=== PATIENT | male | born 1945 | race Caucasian/White ===

== ENCOUNTER 2018-01-01 09:40 | Day surgery (SDC) | payer OTHER ==
[~2018-01-01 09:40] MED LIST: GABAPENTIN400 MG PO; HYZAAR 100-251 UDTAB PO; JANUVIA50 MG PO; LIMBREL 500 MG500 MG PO; SYNTHROID50 MCG PO; TRAMADOL PO
== END 2018-01-01 16:40 | disposition home or self-care (01) ==
LOC: AMB-ENDOS 09:40
DX: K57.30 Diverticulosis of large intestine without perforation or abscess without bleeding (principal); K64.1 Second degree hemorrhoids; I10 Essential (primary) hypertension; E03.8 Other specified hypothyroidism